=== PATIENT | female | born 2005 | race Two or more races ===

== ENCOUNTER 2023-10-22 08:16 | Emergency (ER) | payer OTHER ==
[~2023-10-22] VITALS: Ht 172.7 cm; Wt 54.4 kg
[2023-10-22] MEDS ORDERED: DEXTROSE 5 % AND 0.9 % NACL 500 ML IV STA (09:16)
[2023-10-22 10:14] LABS: HEMATOCRIT 41.7 % (36.0-45.00); HEMOGLOBIN 14.2 g/dL (12.0-15.00); MEAN CELL VOLUME 87.1 fL (80.00-100.00); MEAN CORPUSCULAR HEMOGLOBIN 29.7 pg (27.00-32.0); MEAN CORPUSCULAR HGB CONC 34.1 g/dl (32.0-36.0); PLATELET COUNT 152 K/uL (150-450); RED BLOOD COUNT 4.78 M/uL (4.00-6.00); RED CELL DISTRIBUTION WIDTH 13.8 % (11.5-14.5)
[2023-10-22 10:20] LABS: CALCIUM 9.2 mg/dL (8.5-10.1); CREATININE SERUM 0.93 mg/dL (0.55-1.02); GFR 76.86
[2023-10-22 12:41] LABS: PH,URINE 5.5 (5.0-8.0); URINE APPEARANCE Cloudy; URINE BILIRRUBIN Negative (NEGATIVE); URINE BLOOD Negative; URINE COLOR Yellow; URINE GLUCOSE Negative (NEGATIVE); URINE LEUKOCYTE Negative; URINE NITRATE Negative; URINE PROTEIN Negative (NEGATIVE); URINE UROBILINOGEN 0.2 E.U./dl
[2023-10-22 13:01] LABS: URINE BACTERIA 565.6 uL (0.0-1933); URINE RBC 2.7 uL (0.0-20.8); URINE WBC 19.4 uL (0.0-23.2)
[2023-10-22 13:12] LABS: COCAINE NEGATIVE (NEGATIVE); METHADONE NEGATIVE (NEGATIVE); OPIATES NEGATIVE (NEGATIVE); THC ( Cannabinoids) NEGATIVE (NEGATIVE)
[2023-10-22 13:56] LABS: URINE EPITHELIAL CELLS 0-4 /HPF
== END 2023-10-22 14:28 | disposition home or self-care (01) ==
LOC: EMR PED 08:17 → ER 08:17 → EMR PED 11:15
PROVIDERS: Emergency Medicine
DX: R53.81 Other malaise (principal)